=== PATIENT | female | born 1995 | race Caucasian/White ===

== ENCOUNTER 2021-01-01 14:29 | Emergency (ER) | payer MEDICARE ==
[2021-01-01] MEDS ORDERED: Sodium Chloride 0.9% 10 ML Syringe FLUSH PRN ×2 (15:09→16:18)
--- NOTE | 2021-01-01 15:13 | EDM.PDOC ---
ED HPI GENERAL MEDICAL PROBLEM - General Chief Complaint: Respiratory Problem Stated Complaint: COUGH Time Seen by Provider: 01/01/21 15:02 Source of Information: Reports: Patient, RN Notes Reviewed History Limitations: Reports: No Limitations - History of Present Illness INITIAL COMMENTS - FREE TEXT/NARRATIVE: Patient is a 25-year-old female who presents to the ER for evaluation of an elevated D-dimer with a positive COVID-19 diagnosis. States she was diagnosed with COVID-19 on 12/26/2020. She went to the walk-in clinic today for evaluation and patient's D-dimer was elevated at 1.10. The provider at the walk-in clinic thought that she should have a CT of her chest to rule out PE, so she sent her to the ER for evaluation. Patient has mild Covid symptoms, has a dry in termittent cough, no hemoptysis some mild diarrhea, but she states this is manageable for her. She does have some hearing loss but denies any other past medical issues. Patient basically states that she came over for CT because the provider at the walk-in clinic told her to do so. - Related Data Allergies Allergy/AdvReac Type Severity Reaction Status Date / Time No Known Allergies Allergy Verified 01/01/21 15:09 Past Medical History HEENT History: Reports: Hard of Hearing - Infectious Disease History Infectious Disease History: Reports: Novel Coronavirus (12/26/20) ED ROS GENERAL - Review of Systems Review Of Systems: Comprehensive ROS is negative, except as noted in HPI. ED EXAM, GENERAL - Physical Exam Exam: See Below Exam Limited By: No Limitations General Appearance: Alert, WD/WN, No Apparent Distress Respiratory/Chest: No Respiratory Distress, Lungs Clear, Normal Breath Sounds, No Accessory Muscle Use, Chest Non-Tender Cardiovascular: Normal Peripheral Pulses, Regular Rate, Rhythm, No Edema Peripheral Pulses: 2+: Radial (L), Radial (R) Neurological: Alert, Oriented, Normal Cognition, No Motor/Sensory Deficits Psychiatric: Normal Affect, Normal Mood Skin Exam: Warm, Dry, Intact, Normal Color, No Rash Course - Vital Signs Last Recorded V/S: Last Vital Signs Temp 97.4 F 01/01/21 15:06 Pulse 85 01/01/21 15:06 Resp 16 01/01/21 15:06 BP 101/83 01/01/21 15:06 Pulse Ox 100 01/01/21 15:06 - Orders/Labs/Meds Orders: Active Orders 24 hr Category Date Time Status Peripheral IV Care [RC] . DIRECTED Care 01/01/21 15:09 Ordered Sodium Chloride 0.9% [Normal Saline] 100 ml Med 01/01/21 16:30 Active IV ASDIRECTED Sodium Chloride 0.9% [Saline Flush] Med 01/01/21 15:09 Ordered 10 ml FLUSH ASDIRECTED PRN Sodium Chloride 0.9% [Saline Flush] Med 01/01/21 16:18 Active 10 ml FLUSH ONETIME PRN Peripheral IV Insertion Adult [OM.PC] Routine Oth 01/01/21 15:09 Ordered Medication Orders Sodium Chloride (Normal Saline) 100 mls @ 75 mls/hr IV ASDIRECTED KEDAR Last Admin: 01/01/21 17:00 Dose: 75 mls/hr Documented by: Sodium Chloride (Sodium Chloride 0.9% 10 Ml Syringe) 10 ml FLUSH ASDIRECTED PRN PRN Reason: Keep Vein Open Last Admin: 01/01/21 15:31 Dose: 10 ml Documented by: TRINA Sodium Chloride (Sodium Chloride 0.9% 10 Ml Syringe) 10 ml FLUSH ONETIME PRN PRN Reason: IV FLUSH Last Admin: 01/01/21 16:59 Dose: 10 ml Documented by: Labs: Laboratory Tests 01/01/21 01/01/21 Range/Units 15:26 15:26 WBC 4.13 (3.98-10.04) K/mm3 RBC 5.13 (3.98-5.22) M/mm3 Hgb 14.9 (11.2-15.7) gm/dl Hct 45.0 H (34.1-44.9) % MCV 87.7 (79.4-94.8) fl MCH 29.0 (25.6-32.2) pg MCHC 33.1 (32.2-35.5) g/dl RDW Std Deviation 40.9 (36.4-46.3) fL Plt Count 185 (182-369) K/mm3 MPV 11.3 (9.4-12.3) fl Neut % (Auto) 51.4 (34.0-71.1) % Lymph % (Auto) 43.6 (19.3-51.7) % Barber % (Auto) 4.8 (4.7-12.5) % Eos % (Auto) 0 L (0.7-5.8) Baso % (Auto) 0.2 (0.1-1.2) % Neut # (Auto) 2.12 (1.56-6.13) K/mm3 Lymph # (Auto) 1.80 (1.18-3.74) K/mm3 Barber # (Auto) 0.20 L (0.24-0.36) K/mm3 Eos # (Auto) 0.00 L (0.04-0.36) K/mm3 Baso # (Auto) 0.01 (0.01-0.08) K/mm3 Sodium 140 (136-145) mEq/L Potassium 4.3 (3.5-5.1) mEq/L Chloride 105 (98-107) mEq/L Carbon Dioxide 24 (21-32) mEq/L Anion Gap 15.3 H (5-15) BUN 12 (7-18) mg/dL Creatinine 0.9 (0.55-1.02) mg/dL Est Cr Clr Drug Dosing TNP Estimated GFR (MDRD) > 60 (>60) mL/min BUN/Creatinine Ratio 13.3 L (14-18) Glucose 94 (70-99) mg/dL Calcium 8.9 (8.5-10.1) mg/dL Total Bilirubin 0.4 (0.2-1.0) mg/dL AST 30 (15-37) U/L ALT 38 (14-59) U/L Alkaline Phosphatase 69 (46-116) U/L C-Reactive Protein <0.2 (<1.0) mg/dL Total Protein 7.7 (6.4-8.2) g/dl Albumin 3.7 (3.4-5.0) g/dl Globulin 4.0 gm/dL Albumin/Globulin Ratio 0.9 L (1-2) Meds: Medications Generic Name Dose Route Start Last Admin Trade Name Freq PRN Reason Stop Dose Admin Sodium Chloride 100 mls @ 75 mls/hr 01/01/21 16:30 01/01/21 17:00 Normal Saline IV 75 mls/hr ASDIRECTED KEDAR Administration Sodium Chloride 10 ml 01/01/21 15:09 01/01/21 15:31 Sodium Chloride 0.9% 10 Ml Syringe FLUSH 10 ml ASDIRECTED PRN Administration Keep Vein Open Sodium Chloride 10 ml 01/01/21 16:18 01/01/21 16:59 Sodium Chloride 0.9% 10 Ml Syringe FLUSH 10 ml ONETIME PRN Administration IV FLUSH Discontinued Medications Generic Name Dose Route Start Last Admin Trade Name Maritza PRN Reason Stop Dose Admin Acetaminophen 650 mg 01/01/21 17:01 Acetaminophen 325 Mg Tab PO 01/01/21 17:02 NOW ONE Iopamidol 100 ml 01/01/21 16:18 01/01/21 16:59 Iopamidol 755 Mg/Ml 100 Ml Bottle IVPUSH 01/01/21 16:19 100 ml ONETIME ONE Administration - Re-Assessments/Exams Free Text/Narrative Re-Assessment/Exam: 01/01/21 15:12 Patient presents to the ER for evaluation of her elevated D-dimer with a positive COVID-19 diagnosis. I did go over the risk/benefit ratio of CT, the patient did verbalize understanding and would like to go forward with testing at this time. We will get some basic labs to include CBC and CMP and get a CRP as well. 01/01/21 16:27 CBC and CMP are unremarkable. Still awaiting CT angio of her chest. 01/01/21 17:[address] demonstrated no sign of a pulmonary embolism, there are small patchy areas consistent with Covid pneumonia but no pleural effusions were identified. All other portions of the exam are essentially unremarkable. Results were gone over with the patient, she states she is having a mild headache and I ordered some Tylenol for this but we will get her going home with conservative recommendations. Departure - Departure Time of Disposition: 17:21 Disposition: Home, Self-Care 01 Condition: Good Clinical Impression: COVID-19 - Discharge Information *PRESCRIPTION DRUG MONITORING PROGRAM REVIEWED*: No *COPY OF PRESCRIPTION DRUG MONITORING REPORT IN PATIENT CECILIO: No Instructions: 10 Things You Can Do to Manage Your COVID-19 Symptoms at Home - [facility] (09/09/2020) Referrals: PCP,Not In Area [Primary Care Provider] - Forms: ED Department Discharge Additional Instructions: You were seen in the ER today for ongoing and/or worsening respiratory symptoms. Your chest CT demonstrated no sign of a clot in your lungs, but there is some minimal COVID pneumonia typical with this disease. Your oxygen levels were great at 97-98% on room air. Please try to increase your oral fluid intake, and eat multiple small meals throughout the day, to keep yourself healthy. You need to keep yourself nourished in order to fight off this disease. You can try a liquid diet like gatorade/powerade as well to get your electrolytes. You may take 500 mg Tylenol every hours 6 hours for pain/fever relief. Do not exceed 4000 mg Tylenol in a 24-hour time span. However, running a fever is your body's natural response to illness, and it allows the body to develop antibodies to disease, we are recommending trying to limit the use of Tylenol as much as possible to allow your body's natural immune response. Recommend you obtain a pulse oximeter and monitor your oxygen levels at home, you should place the monitor on your finger, and sit in a calm, quiet position for a few minutes and then record the number that is on the screen. If this consistently below 90% on room air without movement, this would be cause for concern to come back to the hospital for further management of your COVID-19 disease. Please follow all guidance set forth from [facility], regarding isolation purposes for your disease process. General isolation times are 10 days from when you started being symptomatic. Sepsis Event Note (ED) - Focused Exam Vital Signs: Vital Signs Temp Pulse Resp BP Pulse Ox 01/01/21 15:06 97.4 F 85 16 101/83 100 - My Orders Last 24 Hours: My Active Orders 01/01/21 15:09 Peripheral IV Care [RC] . DIRECTED Sodium Chloride 0.9% [Saline Flush] 10 ml FLUSH ASDIRECTED PRN Peripheral IV Insertion Adult [OM.PC] Routine 01/01/21 16:18 Sodium Chloride 0.9% [Saline Flush] 10 ml FLUSH ONETIME PRN 01/01/21 16:30 Sodium Chloride 0.9% [Normal Saline] 100 ml IV ASDIRECTED - Assessment/Plan Last 24 Hours: My Active Orders 01/01/21 15:09 Peripheral IV Care [RC] . DIRECTED Sodium Chloride 0.9% [Saline Flush] 10 ml FLUSH ASDIRECTED PRN Peripheral IV Insertion Adult [OM.PC] Routine 01/01/21 16:18 Sodium Chloride 0.9% [Saline Flush] 10 ml FLUSH ONETIME PRN 01/01/21 16:30 Sodium Chloride 0.9% [Normal Saline] 100 ml IV ASDIRECTED
[2021-01-01] MEDS ORDERED: Iopamidol 755 Mg/ML 100 ML Bottle IVPUSH ONE (16:18)
[2021-01-01] MEDS ORDERED: Sodium Chloride 0.9% 100 ML IV SCH (16:30)
[2021-01-01] MEDS ORDERED: Acetaminophen 325 MG Tab PO ONE (17:01)
--- NOTE | 2021-01-01 17:15 | CT ---
CT chest Technique: Multiple axial sections were obtained through the chest. Intravenous contrast was utilized. Study has been performed as a pulmonary angiogram protocol. Comparison: No prior chest imaging is available. Findings: Pulmonary arteries are well opacified. No filling defects are seen to indicate pulmonary embolism. Thoracic aorta shows no aneurysm. No mediastinal adenopathy is seen. No axillary adenopathy is seen. No pericardial thickening is seen. Visualized portions of the upper abdominal structures show no discrete abnormality. Small patchy areas of increased density are seen throughout both sides of the chest. These findings are likely due to COVID pneumonia. No pleural effusions are seen. Bone window settings were reviewed which show no acute osseous abnormality. Impression: 1. No findings of pulmonary embolism. 2. Mild scattered areas of increased density are noted within both sides of the chest most likely representing COVID pneumonia. Diagnostic code #3
== END 2021-01-01 17:30 | disposition home or self-care (01) ==
LOC: JD.ED 14:29
DX: U07.1 COVID-19 (principal)
CPT/HCPCS: 36415; 71275; 80053; 85025; 86140; 99284; Q9967

== ENCOUNTER 2022-07-29 20:18 | Emergency (ER) | payer BC, MEDICARE ==
[2022-07-29 21:09] LABS: APPEARANCE,URINE SLT CLOUDY (Clear); BILIRUBIN,URINE NEGATIVE (Negative); COLOR,URINE YELLOW (Yellow); GLUCOSE,URINE NEGATIVE (Negative); KETONES,URINE NEGATIVE (Negative); LEUKOCYTE ESTERASE,URINE 1+ (Negative); NITRITE,URINE NEGATIVE (Negative); OCCULT BLOOD,URINE 1+ (Negative); PROTEIN,URINE 1+ (Negative)
[2022-07-29 21:18] LABS: BACTERIA,URINE MANY /hpf (FEW); MUCUS,URINE MODERATE /hpf (FEW); RBC,URINE 30-40 /hpf (0-5); SQUAMOUS EPITHELIAL CELLS,UR 20-30 /hpf (0-5); WBC,URINE TOO NUMEROUS TO CNT /hpf (0-5)
[2022-07-29] MEDS ORDERED: Sulfamethoxazole/Trimethoprim 800-160 MG Tab PO ONE (21:50)
[2022-07-29] MEDS ORDERED: Phenazopyridine 95 MG Tab PO SCH (21:58)
[2022-07-30] MEDS ORDERED: Phenazopyridine 95 MG Tab PO SCH (09:00)
== END 2022-07-29 22:13 | disposition home or self-care (01) ==
LOC: JD.ED 20:18
DX: N39.0 Urinary tract infection, site not specified (principal); Z86.16 Personal history of COVID-19
CPT/HCPCS: 81001; 99283; A9270

== ENCOUNTER 2023-05-17 14:05 | Emergency (ER) | payer BC, MEDICARE ==
[2023-05-17] MEDS: Prochlorperazine 10 MG in Sodium Chloride 0.9% 50 ML IV ONE (16:46)
[2023-05-17] MEDS: Sodium Chloride 0.9% 10 ML Syringe FLUSH PRN (16:47)
[2023-05-17 17:05] LABS: APPEARANCE,URINE CLEAR (Clear); BILIRUBIN,URINE NEGATIVE (Negative); COLOR,URINE YELLOW (Yellow); GLUCOSE,URINE NEGATIVE (Negative); KETONES,URINE 1+ (Negative); LEUKOCYTE ESTERASE,URINE TRACE (Negative); NITRITE,URINE NEGATIVE (Negative); OCCULT BLOOD,URINE 3+ (Negative); PH,URINE 6.5 (5.0-8.0); PROTEIN,URINE NEGATIVE (Negative); UROBILINOGEN,URINE 0.2 (0.2-1.0)
[2023-05-17 17:28] LABS: BACTERIA,URINE FEW /hpf (FEW); MUCUS,URINE FEW /hpf (FEW); RBC,URINE 40-50 /hpf (0-5); WBC,URINE 0-5 /hpf (0-5)
[2023-05-17 17:33] LABS: BASOPHILS PERCENT AUTO 0.2 % (0.0-1.0); EOSINOPHILS PERCENT AUTO 0.1 % (0.0-6.0); HEMATOCRIT 40.3 % (37.0-47.0); HEMOGLOBIN 13.7 gm/dl (12.0-16.0); IMMATURE GRAN ABSOLUTE AUTO 0.03 K/mm3 (0.00-0.05); IMMATURE GRAN PERCENT AUTO 0.3 % (0.0-0.4); LYMPHOCYTES ABSOLUTE AUTO 0.8 K/mm3 (1.0-4.8); LYMPHOCYTES PERCENT AUTO 8.9 % (24.0-44.0); MEAN CORPUSCULAR HEMOGLOBIN 30.2 pg (28.0-32.0); MEAN CORPUSCULAR VOLUME 88.8 fl (83.0-99.0); MEAN PLATELET VOLUME 10.1 fl (9.4-12.3); MONOCYTES ABSOLUTE AUTO 0.4 K/mm3 (0.0-0.8); MONOCYTES PERCENT AUTO 4.1 % (0.0-8.0); NEUTROPHILS ABSOLUTE AUTO 8.2 K/mm3 (1.8-7.7); NEUTROPHILS PERCENT AUTO 86.4 % (41.0-71.0); PLATELET COUNT,PLT 286 K/mm3 (150-400); RED BLOOD CELL COUNT 4.54 M/mm3 (4.10-5.30); WHITE BLOOD CELL COUNT,WBC 9.46 K/mm3 (3.9-11.3)
[2023-05-17 19:11] LABS: ALBUMIN 3.8 g/dl (3.4-5.0); ANION GAP 15.8 (5-15); BILIRUBIN TOTAL 1.3 mg/dL (0.2-1.0); BUN/CREATININE RATIO 16.3 (14-18); CALCIUM 9.7 mg/dL (8.5-10.1); CREATININE 0.8 mg/dL (0.55-1.02); EST CRCL DRUG DOSING (CG) 110.39 mL/min; POTASSIUM,K 3.8 mEq/L (3.5-5.1); PROTEIN TOTAL,TP 7.8 g/dl (6.4-8.2)
== END 2023-05-17 19:46 | disposition home or self-care (01) ==
LOC: JD.ED 14:05
DX: R10.13 Epigastric pain (principal); R10.11 Right upper quadrant pain; R11.0 Nausea; R19.7 Diarrhea, unspecified; Z86.16 Personal history of COVID-19
CPT/HCPCS: 36415; 76705; 80053; 81001; 83690; 85025; 87086; 93005; 96365; 99284; J0780; J3490; 93010

== ENCOUNTER 2023-10-26 10:54 | Emergency (ER) | payer OTHER, MEDICARE ==
[2023-10-26 12:33] LABS: BASOPHILS PERCENT AUTO 0.3 % (0.0-1.0); EOSINOPHILS PERCENT AUTO 0.5 % (0.0-6.0); HEMATOCRIT 39.2 % (37.0-47.0); IMMATURE GRAN ABSOLUTE AUTO 0.03 K/mm3 (0.00-0.05); IMMATURE GRAN PERCENT AUTO 0.4 % (0.0-0.4); LYMPHOCYTES PERCENT AUTO 25.3 % (24.0-44.0); MEAN CORPUSCULAR HEMOGLOBIN 30.2 pg (28.0-32.0); MEAN CORPUSCULAR HGB CONC 33.2 g/dl (32.0-36.0); MEAN CORPUSCULAR VOLUME 91.2 fl (83.0-99.0); MEAN PLATELET VOLUME 10.5 fl (9.4-12.3); MONOCYTES ABSOLUTE AUTO 0.4 K/mm3 (0.0-0.8); MONOCYTES PERCENT AUTO 5.3 % (0.0-8.0); NEUTROPHILS ABSOLUTE AUTO 5.4 K/mm3 (1.8-7.7); NEUTROPHILS PERCENT AUTO 68.2 % (41.0-71.0); PLATELET COUNT,PLT 262 K/mm3 (150-400)
[2023-10-26 13:14] LABS: ALBUMIN 3.5 g/dl (3.4-5.0); ANION GAP 14.1 (5-15); BILIRUBIN TOTAL 0.5 mg/dL (0.2-1.0); BUN/CREATININE RATIO 15.7 (14-18); C-REACTIVE PROTEIN 0.16 mg/dL (<0.30); CALCIUM 8.7 mg/dL (8.5-10.1); CREATININE 0.7 mg/dL (0.55-1.02); EST CRCL DRUG DOSING (CG) 125.04 mL/min; POTASSIUM,K 4.1 mEq/L (3.5-5.1); PROTEIN TOTAL,TP 7.2 g/dl (6.4-8.2)
[2023-10-26 13:22] LABS: APPEARANCE,URINE CLEAR (Clear); BILIRUBIN,URINE NEGATIVE (Negative); COLOR,URINE YELLOW (Yellow); GLUCOSE,URINE NEGATIVE (Negative); KETONES,URINE 1+ (Negative); LEUKOCYTE ESTERASE,URINE 1+ (Negative); NITRITE,URINE NEGATIVE (Negative); OCCULT BLOOD,URINE NEGATIVE (Negative); PH,URINE 6.5 (5.0-8.0); PROTEIN,URINE TRACE (Negative); UROBILINOGEN,URINE 0.2 (0.2-1.0)
[2023-10-26 13:37] LABS: BACTERIA,URINE FEW /hpf (FEW); MUCUS,URINE MODERATE /hpf (FEW); RBC,URINE 0-5 /hpf (0-5); SQUAMOUS EPITHELIAL CELLS,UR 0-5 /hpf (0-5); WBC,URINE 0-5 /hpf (0-5)
== END 2023-10-26 14:59 | disposition home or self-care (01) ==
LOC: JD.ED 10:54
DX: O99.611 Diseases of the digestive system complicating pregnancy, first trimester (principal); K21.9 Gastro-esophageal reflux disease without esophagitis; Z86.16 Personal history of COVID-19; Z79.899 Other long term (current) drug therapy; Z3A.01 Less than 8 weeks gestation of pregnancy
CPT/HCPCS: 36415; 76705; 76705-26; 80053; 81001; 82977; 83690; 84702; 85025; 86140; 87086; 99284

== ENCOUNTER 2024-05-21 02:47 | Inpatient (IN) | payer OTHER, MEDICARE ==
[2024-05-21] MEDS ORDERED: Calcium Carbonate 500 MG Tab.Chew PO PRN (03:29)
[2024-05-21] MEDS ORDERED: Acetaminophen 325 MG Tab PO PRN (03:29)
[2024-05-21] MEDS ORDERED: Sodium Chloride 0.9% 10 ML Syringe FLUSH PRN (03:29)
[2024-05-21] MEDS ORDERED: Lidocaine 1% 50 ML MDV INJECT PRN (03:29)
[2024-05-21] MEDS ORDERED: Oxytocin/0.9 % Sodium Chloride 30 UNIT/500 ML BAG IV SCH (03:30)
[2024-05-21 04:00] LABS: BASOPHILS PERCENT AUTO 0.3 % (0.0-1.0); EOSINOPHILS ABSOLUTE AUTO 0.1 K/mm3 (0.0-0.4); EOSINOPHILS PERCENT AUTO 0.8 % (0.0-6.0); HEMATOCRIT 33.9 % (37.0-47.0); HEMOGLOBIN 11.2 gm/dl (12.0-16.0); IMMATURE GRAN ABSOLUTE AUTO 0.12 K/mm3 (0.00-0.05); IMMATURE GRAN PERCENT AUTO 1.1 % (0.0-0.4); LYMPHOCYTES PERCENT AUTO 18.2 % (24.0-44.0); MEAN CORPUSCULAR HEMOGLOBIN 28.3 pg (28.0-32.0); MEAN CORPUSCULAR VOLUME 85.6 fl (83.0-99.0); MEAN PLATELET VOLUME 11.6 fl (9.4-12.3); MONOCYTES ABSOLUTE AUTO 0.6 K/mm3 (0.0-0.8); MONOCYTES PERCENT AUTO 5.7 % (0.0-8.0); NEUTROPHILS ABSOLUTE AUTO 7.9 K/mm3 (1.8-7.7); NEUTROPHILS PERCENT AUTO 73.9 % (41.0-71.0); PLATELET COUNT,PLT 213 K/mm3 (150-400); RED BLOOD CELL COUNT 3.96 M/mm3 (4.10-5.30); WHITE BLOOD CELL COUNT,WBC 10.75 K/mm3 (3.9-11.3)
[2024-05-21] MEDS: Lactated Ringers 1,000 ML IV SCH (07:58)
[2024-05-21] MEDS: Oxytocin/0.9 % Sodium Chloride 30 UNIT/500 ML BAG IV SCH (08:00)
[2024-05-21] MEDS: Nalbuphine 10 MG/1 ML Vial IVPUSH PRN (11:08)
[2024-05-21] MEDS: Ondansetron 4 MG/2 ML SDV IVPUSH PRN (11:22)
[2024-05-21] MEDS: Methylergonovine 0.2 MG/1 ML Amp IM STA (13:01)
[2024-05-21] MEDS ORDERED: Docusate Sodium 100 MG Cap PO PRN (13:21)
[2024-05-21] MEDS: Ibuprofen 600 MG Tab PO SCH ×2 (14:43→14:50)
[2024-05-21] MEDS: Tranexamic Acid 1,000 MG/10 ML Vial ONE (14:44)
[2024-05-21] MEDS: Witch Hazel Medicated Pads 40/Jar TOP PRN (14:49)
[2024-05-21] MEDS: Benzocaine/Menthol 20%-0.5% Spray 78 GM Cannister TOP PRN (14:49)
[2024-05-21] MEDS: Acetaminophen 325 MG Tab PO PRN (22:19)
[2024-05-22] MEDS: Ibuprofen 600 MG Tab PO SCH (19:04)
== END 2024-05-23 12:22 | disposition home or self-care (01) | DRG 807 ==
LOC: JD.OBCHECK 02:47 → JD.OB 02:51 → JD.OBCHECK 03:32 → JD.OB 03:56 → OBSVTOIN 12:53 → JD.OB 12:54
PROVIDERS: ADMIT Obstetrics & Gynecology; ATTEND Obstetrics & Gynecology
PROC: 10E0XZZ Delivery of Products of Conception, External Approach (ICD-10-PCS; principal; 2024-05-21)
DX: O42.92 Full-term premature rupture of membranes, unspecified as to length of time between rupture and onset of labor (principal); Z37.0 Single live birth; O99.344 Other mental disorders complicating childbirth; O99.214 Obesity complicating childbirth; Z86.16 Personal history of COVID-19; Z3A.37 37 weeks gestation of pregnancy; Z79.899 Other long term (current) drug therapy
CPT/HCPCS: 36415; 59025; 59409; 85025; 86592; 86850; 86900; 86901; A9270-GY; J2210; J2300; J2405; J7120; J7999